=== PATIENT | male | born 1945 | race Caucasian/White ===

== ENCOUNTER 2020-07-01 09:48 | Day surgery (SDC) | payer MEDICARE, OTHER ==
[2020-07-01] MEDS ORDERED: Decadron 4 MG INJ IV ONE (09:49)
[2020-07-01] MEDS ORDERED: Sodium Chloride 0.9(Preservative Free) 10 ML IJ ONE (09:49)
[2020-07-01] MEDS ORDERED: Xylocaine 1% Vial 30 ML PF IJ ONE (09:49)
[2020-07-01] MEDS ORDERED: Depo-Medrol 40 MG/ML IM ONE (09:49)
[2020-07-01] MEDS ORDERED: Ketamine HCl 50 MG/ML ONE (11:43)
[2020-07-01] MEDS ORDERED: DIPRIVAN 200 MG/20 ML IV ONE (11:43)
--- NOTE | 2020-07-01 12:26 | XRAY ---
Indication: Left piriformis injection. Intraoperative fluoroscopy was provided for 16 seconds. Single digital spot image submitted for interpretation demonstrates posterior needle tip projecting over the expected left piriformis muscle. Small amount of contrast injected for needle tip placement. Correlate with intraoperative findings/report.
--- NOTE | 2020-07-01 12:28 | XRAY ---
Indication: Left L4-S1 transforaminal JUAN R. Intraoperative fluoroscopy was provided for 39 seconds. 5 digital spot images submitted for interpretation demonstrates posterior needle tips projecting over the expected left L4 and L5 nerve roots. Small amount of contrast injected for needle tip placement. Correlate with intraoperative findings/report.
--- NOTE | 2020-07-01 13:09 | XRAY ---
39 seconds of fluoroscopy was used in surgery for a left L4-L5 and L5-S1 transforaminal JUAN R.
--- NOTE | 2020-07-01 13:09 | XRAY ---
16 seconds of fluoroscopy was used in surgery for a left piriformis injection.
[2020-07-01] MEDS ORDERED: Lactated Ringers 1,000 ML IV ONE (15:55)
== END 2020-07-01 12:15 | disposition home or self-care (01) ==
LOC: SDC-PAIN 09:48
PROVIDERS: ATTEND Psychiatry & Neurology Pain Medicine
DX: M54.16 Radiculopathy, lumbar region (principal); M79.18 Myalgia, other site; M60.9 Myositis, unspecified; I10 Essential (primary) hypertension; E78.5 Hyperlipidemia, unspecified; Z79.899 Other long term (current) drug therapy
CPT/HCPCS: 20552; 64483; 64484; 72020; 72100; 77002; 77003; 99100; J1030; J1100; J2001; J2704; Q9966